=== PATIENT | male | born 1960 | race Caucasian/White ===

== ENCOUNTER 2021-12-28 13:26 | Emergency (ER) | payer SELFPAY ==
[2021-12-28 13:29] VITALS: BP 151/79; PULSE 88; RESP 16; TEMP 36.5; O2SAT 98
--- NOTE | 2021-12-28 13:30 | DI.RAD_ITS ---
Exam(s) XR ANKLE LT COMPLETE EXAM: XR ANKLE LT COMPLETE CLINICAL HISTORY: Left ankle pain. TECHNIQUE: 2D digital imaging was performed. COMPARISON: No exams were available for comparison FINDINGS: 3 views There is abundant soft tissue swelling around the entire ankle. There are no malleolar fractures nor widening of the ankle mortise. Talar dome appears unremarkable. However, there is an osteophytic d ensity seen on the anterior aspect of the tibial plafond measuring 5 x 4 millimeters. Either loose i ntra-articular body or fracture fragment. Another similar finding is seen adjacent to this. Promine nt posterior process of the talus is noted. Inferior calcaneal spur noted. No radiopaque foreign body. No osseous lesions. IMPRESSION: DATA REPOSITORY: RADIATION DOSE DELIVERED:
--- NOTE | 2021-12-28 14:30 | DI.US_ITS ---
Exam(s) US LOWER EXTREMITY VENOUS LT EXAM: US LOWER EXTREMITY VENOUS LT CLINICAL HISTORY: LLE swelling TECHNIQUE: Grayscale, color, and doppler imaging of the deep venous system of the lower extremity w as performed. COMPARISON: No exams were available for comparison FINDINGS: There is no evidence of intraluminal thrombus and there is normal compression and augmentation demons trated within the common femoral vein, femoral vein, and popliteal vein. In the ipsilateral calf the interrogated veins also exhibit normal compression/ augmentation properti es. The ipsilateral saphenofemoral junction is patent. Large Carver cyst noted popliteal fossa extending into the calf for distance of approximately 9 cm and containing echogenic debris therein IMPRESSION: 1. No evidence of DVT in the left lower extremity. However, there is a large cystic structure in the popliteal fossa extending down into the calf contai aiyana debris. This is probably a large Carver cyst. DATA REPOSITORY:
--- NOTE | 2021-12-28 14:43 | ED.GENADUL_ITS ---
Discharge Plan Disposition Patient Disposition: HOME Condition: Stable Discharge Details Clinical Impression: Carver's cyst, ruptured, Edema of left lower leg Primary Care Provider: Sheyla,Local ED Provider: Anayeli Marroquin Home Meds and New Rx's Prescriptions: No Action No Known Home Meds Discharge Instructions Instructions: Leg Edema (ED), Swollen Knee Joint (ED) Additional Instructions: Strict elevation of the extremity above your heart, wear the Chi wrap around the knee and lower extremity for comfort. Ice 20 minutes on 20 minutes off. Please take Tylenol or Ibuprofen with food every 4-6 hours as needed for pain and swelling. Please follow-up with orthopedics within the next week. Referrals: Wali Conner MD [ [facility] STAFF PHYSICIAN] - 5 days Discharge Data Discharge Date/Time-TO BE ENTERED AT DEPARTURE: 12/28/21 17:35 Medical Decision Making 61-year-old male presents to the ER with chief complaint of left ankle swelling which he noticed the 22nd 3 outer side of ankle. He has been doing yard work and playing golf with increasing swelling. Patient reports that he was seen in [facility] care a week ago with fever and chills X-rays ordered from the waiting room: Results show there is abundant soft tissue swelling around the entire ankle see report below. Patient has 3+ edema noted, discoloration left lower extremity ultrasound ordered to rule out DVT. Ultrasound shows a large Carver's cyst noted in the popliteal fossa extending into the calf for approximately 9 cm and containing echogenic debris variant. No evidence of DVT in the left lower extremity. 1610: Orthopedics paged. Patient in bed I did instruct for him to have his leg elevated ice was placed 1615: Spoke with Dr. Conner with orthopedics regarding patient case and details he recommends strict RICE procedures Chi wrap and follow-up in orthopedic office. At this time I am concerned for the potential for compartment syndrome. Patient does not appear to be in compartment syndrome at this time. Also consideration for DVT due to patient recent trip in a car from [place]. At this time on this visit he does deny any chest pain shortness of breath or any concerns for PE. Chi wrap was placed by social staff worker from the foot up to the knee. Patient remained hemodynamically stable alert and oriented throughout stay. This text was generated using alphacityguidesation system, please disregard any oddities of phrase or misspellings. Imaging Data Radiologic Study: Imaging: X-Ray Radiologist's impression: There is abundant soft tissue swelling around the entire ankle. There are no malleolar fractures nor widening of the ankle mortise. Talar dome appears unremarkable. However, there is an osteophytic density seen on the anterior aspect of the tibial plafond measuring 5 x 4 millimeters. Either loose intra- articular body or fracture fragment. Another similar finding is seen adjacent to this. Prominent posterior process of the talus is noted. Inferior calcaneal spur noted. HPI General Mode of arrival: ambulatory . Date/Time Provider Initiated Documentation: 12/28/21 13:35 . Limitations to Documentation: no limitations . Information obtained by: patient . HPI Narrative: 61-year-old male presents to the ER chief complaint of left lower extremity swelling and pain of his been ongoing since December 17. He has been using his leg since with some difficulty. He reports inflammatory type pain. He has been using ibuprofen with little to no relief. He is alert and oriented, cooperative upon initial exam. He reports no other associated symptoms denies any chest pain shortness of breath. Related Data Home Medications Medication Instructions Recorded Confirmed Unknown [No Known Home Meds] 12/21/21 12/28/21 Allergies Allergy/AdvReac Type Severity Reaction Status Date / Time acetaminophen [From Tylenol] Allergy Verified 12/28/21 13:34 General Stated Complaint: Orthopedic BIBIANA: 3 Review of Systems All systems reviewed & are unremarkable except as noted in HPI and below Musculoskeletal Musculoskeletal: Reports as per HPI, Reports abnormal gait, Reports joint swelling (Entire left lower extremity swelling), Reports radiating pain into limb and Denies tingling Integumentary/Breasts Skin/Breast: Reports skin swelling Neurologic Neurologic: Reports abnormal gait, Denies sensory deficit and Denies tingling [facility] All Active Problems (Updated 12/28/21 @ 16:47 by Anayeli Marroquin) Carver's cyst, ruptured (Acute) Edema of left lower leg (Acute) Social History Smoking/Tobacco Use Status: Never Smoking risk assessment performed?: Yes Alcohol Intake: never Drug use: Never Do you feel safe at home: Yes Do you feel safe in your relationship?: Yes Exam Extrem Left lower extremity: normal capillary refill, edema Details: pitting and 3+, knee Details: abnormal to inspection and swelling (Posterior swelling) Location: of the popliteal fossa, lower leg, ankle and foot Upper/lower leg/hip images: 1. There is significant swelling noted to left lower extremity extending from the knee down, there is ecchymosis noted on the medial aspect of the lateral aspect of the ankle, 3+ pitting edema noted to the ankle, dorsal foot is also swollen, calf is tender and taut, the popliteal fossa does have swelling pal pated. Patient has intact sensation to the dorsum of his foot, cap refill less than 3 seconds he does have sensation intact to all 5 of his toes. Course Vital Signs Vital signs: Vital Signs Temperature 36.5 C 12/28/21 13:29 Pulse 88 12/28/21 13:29 Respiratory Rate 16 12/28/21 13:29 Blood Pressure 151/79 H 12/28/21 13:29 Pulse Oximetry 98 12/28/21 13:29 Temperature 36.5 C 12/28/21 13:29 Temperature Source Skin 12/28/21 13:29 Pulse 88 12/28/21 13:29 Respiratory Rate 16 12/28/21 13:29 Respiratory Effort 12/28/21 13:34 Blood Pressure 151/79 H 12/28/21 13:29 Blood Pressure Position Sitting 12/28/21 13:29 Pulse Oximetry 98 12/28/21 13:29 Oxygen Delivery Method Room Air 12/28/21 13:29 Oxygen Flow Rate 0 12/28/21 13:29 Pain Level 8 12/28/21 13:29 Comment 12/28/21 13:29
[2021-12-28 16:50] LABS: Abs Immature Grans 0.02 10^3/uL (0.0-0.06); Absolute Basophil Count 0.03 10^3/uL (0.0-0.2); Absolute Eosinophil Count 0.11 10^3/uL (0.0-0.7); Absolute Monocyte Count 0.55 10^3/uL (0.1-0.8); Absolute Neutrophil Count 3.67 10^3/uL (1.2-6.7); Basophils % 0.5; Eosinophils % 1.8; HGB 12.8 g/dL (13.5-17.5); Immature Grans % 0.3; Lymphocytes % 30.3; MCH 32.6 pg (27.0-33.0); MCHC 35.6 % (32.0-36.0); MCV 92 fL (80-95); MPV 8.7 fL (8.0-11.0); Monocytes % 8.8; Neutrophils % 58.3; Platelet Count 264 10^3/uL (130-400); RBC 3.93 10^6/uL (4.36-5.78); RDW 11.5 % (11.8-14.1); RDW-SD 39.3 fL; WBC 6.28 10^3/uL (4.4-10.8)
[2021-12-28 17:10] LABS: ALT 58 U/L (16-63); AST 46 U/L (15-37); Albumin 3.4 g/dL (3.4-5.0); Alkaline Phosphatase 54 U/L (46-116); Anion Gap 8.4 mmol/L (3-11); BUN 12 mg/dL (7-18); CO2 26.6 mmol/L (21.0-32.0); CREATININE 0.7 mg/dL (0.70-1.30); Calcium 9.2 mg/dL (8.5-10.1); Chloride 102 mmol/L (98-107); Glucose 87 mg/dL (74-106); Sodium 137 mmol/L (136-145); Total Protein 7.5 g/dL (6.4-8.2)
[2021-12-28 17:19] VITALS: BP 131/73; PULSE 80; RESP 16; TEMP 35.5; O2SAT 100
== END 2021-12-28 17:35 | disposition home or self-care (01) ==
PROVIDERS: Emergency Provider Registered Nurse Emergency
DX: M66.0 Rupture of popliteal cyst (principal); R60.0 Localized edema
CPT/HCPCS: 36415; 80053; 99284; 73610; 85025; 93971